=== PATIENT | female | born 1965 | race Two or more races ===

== ENCOUNTER → 2016-05-30 | Day surgery (SDC) | payer BC ==
[~2016-05-30] VITALS: Ht 175.3 cm; Wt 67.6 kg
[2016-05-30] VITALS (7 sets, daily range): BP systolic 140–148; BP diastolic 84–92
[~2016-05-30] MED LIST: ALOGLIPTIN-MET1 EAC1 PO; DIOVAN320 MG ORAL; Propofol 10mg/ml 20ml IV ONE; [UNRECOGNIZED DRUG - OTHER] PO
--- NOTE | 2016-05-30 08:53 | Short Stay Surgery H&P ---
History of Present Illness History of Present Illness Chief Complaint Rectal bleeding diarrhea, abdominal pains. JAQUELINE Bird is a 50 year old female who was admitted on for Rectal Bleeding Patient History Allergies: Coded Allergies: No Known Allergies (Unverified , 05/30/16) PAST MEDICAL HISTORY: (1) Hyperlipidemia (2) Diabetes (3) Hypertension Past Surgeries: Social History: Medication History Scheduled Alogliptin Roge/Metformin HCl (Alogliptin-Metformin 12.5-1000), 1 EACH PO BID, ( Reported) Valsartan (Diovan), 320 MG ORAL DAILY, (Reported) [Roussastatin], 10 MG PO DAILY, (Reported) Review of Systems Cardiovascular: Reports: no symptoms Respiratory: Reports: no symptoms Skeletal: Reports: no symptoms Gastrointestinal: Reports: other Genitourinary: Reports: no symptoms Neurologic: Reports: no symptoms Endocrine: Reports: diabetes - type 2 Hematologic: Reports: no symptoms Physical Exam Skin: normal HENT: normal Heart: normal Lungs: normal Abdomen: normal Extremities: normal Genitourinary: normal Plan Plan of Care Upper and lower GI endoscopies. Preop Interventions None. Summary of Findings See the reports. Final Diagnosis: Attestation Are the patient's medical conditions optimized for surgery? Attestation Response: yes JUSTYN CARRILLO May 30, 2016 08:53
--- NOTE | 2016-05-30 08:55 | Immediate Post-Op Evaluation ---
Immediate Post-Op Evalulation Immediate Post-Op Evalulation Procedure: egd colonocopy Date of Evaluation: May 30, 2016 Nausea: No Vomiting: No Hydration Status: adequate Mary Cisse MD May 30, 2016 08:55
--- NOTE | 2016-05-30 08:55 | Anethesia Preoperative Eval ---
Anesthesia Pre-op PMH/ROS General Date of Evaluation: May 30, 2016 ASA Score: ASA 1 Mallampati Score Class I : Soft palate, uvula, fauces, pillars visible Class II: Soft palate, uvula, fauces visible Class III: Soft palate, base of uvula visible Class IV: Only hard plate visible Mallampati Classification: Class I Allergies: Coded Allergies: No Known Allergies (Unverified , 05/30/16) Mary Cisse MD May 30, 2016 08:55
--- NOTE | 2016-05-30 08:55 | Pre-Procedure Note/Attestation ---
Pre-Procedure Note/Attestation Complete Prior to Procedure Planned Procedure: left Procedure Narrative: Endoscopic exam of the upper and lower GI tract. Indications for Procedure Pre-Operative Diagnosis: R/O diarrhea secondary to colitis, celiac, gastritis hemorrhoids tumors. Attestation I attest that I discussed the nature of the procedure; its benefits; risks and complications; and alternatives (and the risks and benefits of such alternatives ), prior to the procedure, with the patient (or the patient's legal digital media representative). I attest that, if there was a reasonable possibility of needing a blood transfusion, the patient (or the patient's legal digital media representative) was given the [place] [employer] [facility] standardized written summary, pursuant to the [place] Blood Safety Act ([place] Health and Safety Code # 1645, as amended). I attest that I re-evaluated the patient just prior to the surgery and that there has been no change in the patient's H&P, except as documented below: JUSTYN CARRILLO May 30, 2016 08:55
--- NOTE | 2016-05-30 08:56 | 48 Hour Post Anesthesia Eval ---
Post Anesthesia Evaluation Procedure: egd colonocopy Nausea: No Vomiting: No Hydration Status: adequate Mary Cisse MD May 30, 2016 08:56
--- NOTE | 2016-05-30 09:50 | Endoscopy Procedure Note ---
Endoscopy Procedure Note Indication for Procedure: Abdominal pain and diarrhea with rectal bleeding Procedures Performed: EGD - Normal upper GI endoscopy and biopsies obtained from duodenum and gastric body., colonoscopy - Minimal internal hemorrhoids. Occasional diverticuli noted. Two diminutive polyps found in proximal ascending colon and ICV that both were removed by cold snare, however the ICV polyp could not be retrived. Terminal ilium also examined and biospied as looked normal. No evidence of colitis noted. Specimen: yes Pt Tolerated Procedure Well: Yes Estimated Blood Loss: none Anesthesiologist: Dr. Odonnell. Anesthesia: moderate sedation Medication Given: see anesthesia record Implant(s) used?: No 50 yrs or older w/o bx or poly: Yes 10yrs. F/U not recommended: Yes If not recommended, why?: Med reason:<3 yrs.: System Reason:<3 yrs.: Last colonoscopy >= to 3yrs: Yes JUSTYN CARRILLO May 30, 2016 09:50
--- NOTE | 2016-05-30 09:51 | Discharge Instructions ---
Discharge Instructions Discharge Instructions Follow up with: See the docotor in office after 2 weeks. For Congestive Heart Failure Reminder Report to your physician any weight gain of 5 pounds or more in one week. JUSTYN CARRILLO May 30, 2016 09:51
--- NOTE | 2016-05-30 17:38 | Operative Note - Dictated ---
DATE OF OPERATION: 05/30/2016 PROCEDURE: Esophagogastroduodenoscopy with biopsy. PREOPERATIVE DIAGNOSIS: Diarrhea and abdominal pain. POSTOPERATIVE DIAGNOSIS: Normal upper gastrointestinal endoscopy and biopsy was taken from the first and second portion of duodenum and gastric area. MEDICATION USED: Per Dr. Odonnell, anesthesiologist. INSTRUMENT: GIF Olympus upper gastrointestinal video endoscope. DESCRIPTION OF PROCEDURE: The patient after arriving in the endoscopy unit, was told about risks and benefits of the procedure, which she accepted and signed the informed consent. The patient has been complaining of chronic diarrhea and as such, to rule out the possibility of celiac disease, this procedure was done. Upon entering into the stomach, gradually the scope was advanced towards gastroesophageal junction, which revealed basically normal findings. GE junction also looked normal without any evidence of hiatal hernia or Swanson's mucosa. The scope at this time was advanced into the gastric cavity and the areas of the fundus and the body and the antrum were examined in central supply technician fashion, which revealed basically normal findings without any particular pathology such as ulcers, tumors, etc. At this point, the scope was passed through normal looking pylorus. First and second portion of duodenum were examined and they looked normal and duodenal fold and haustra all looked normal. Clinically and endoscopically, there was no evidence of the celiac disease, however, biopsies were obtained from first and second portion of duodenum including bowel. At this time, the scope was pulled back into the stomach. A retroflexion maneuver was applied. The area of the gastroesophageal junction was examined in a closer fashion, which did not reveal any abnormality. Finally, the scope was pulled out and the procedure was terminated. The patient tolerated the procedure well. Said Emily Hunter DR: LILLY JOB#: [id number] CC:
--- NOTE | 2016-05-30 17:48 | Operative Note - Dictated ---
DATE OF OPERATION: 05/30/2016 PROCEDURE: 1. Total colonoscopy with polypectomy. 2. Ileoscopy with biopsy. PREOPERATIVE DIAGNOSES: 1. History of chronic diarrhea, rule out Crohn disease versus ulcerative colitis. 2. Rectal bleeding of uncertain etiology. POSTOPERATIVE DIAGNOSES: 1. Minimal internal hemorrhoid. 2. Occasional diverticuli noted in the colon. 3. Two small hyperplastic polypoid lesion noted over the proximal ascending colon and ileocecal valve and they were removed with cold snare, however, the ileocecal valve polyps could not be retrieved. 4. Normal looking terminal ileum and multiple biopsies were obtained from there the area of the terminal ileum. 5. Multiple biopsies all around the large bowel was obtained. 6. Poor colonic preparation. MEDICATION USED: Per Dr. Odonnell, anesthesiologist. INSTRUMENT: GIF Olympus video colonoscope. DESCRIPTION OF PROCEDURE: The patient after arriving in the endoscopy unit, was told about risks and benefits of the procedure, which she accepted and signed the informed consent. She was then put on the left lateral decubitus position. After adequate IV sedation, the scope was gently passed through the anal area, which revealed evidence of minimal exuding internal hemorrhoids. A retroflexion maneuver, which was applied in the rectum did not reveal any other major pathology except signifying the same minimal internal hemorrhoids, which were not friable at this time. At this time, the scope was gradually advanced into rather redundant left colon, which revealed occasional diverticular lesions, but there was no any evidence of colitis, polyps, tumors or bleeding site etc. The scope was gradually advanced toward the splenic flexure from there into transverse colon, which basically looked normal. The colon cleanup however was substandard and multiple irrigation had to be given. Finally, the scope could reach towards the hepatic flexure and guided into the right colon all the way to the base of the cecum. Incidental findings were the presence of two hyperplastic/diminutive polypoid lesion size of 2 to 3 millimeter, which was quite soft and there was grabbed with cold snare and removed, however, the polyp which was located over the ileocecal valve could not be retrieved. Finally, the scope was gradually advanced into terminal ileum with maneuvers, which basically revealed normal terminal ileum mucosa and no evidence of ulceration, inflammatory, polyps or stricture etc to suggest Crohn's disease, however, multiple biopsies from this area was also obtained. Finally, upon withdrawal of the scope from the colon in the different areas of the colon multiple biopsies were obtained including ascending, transverse, descending, ileocecal valve, and perirectal area and rectal area. Finally, the patient tolerated the procedure well and left the endoscopy room in good condition. Said Emily Hunter DR: LILLY JOB#: [id number] CC:
== END | disposition home or self-care (01) ==
LOC: GAS 07:23
DX: K62.5 Hemorrhage of anus and rectum (principal); R19.7 Diarrhea, unspecified; D12.2 Benign neoplasm of ascending colon; D12.0 Benign neoplasm of cecum; K64.8 Other hemorrhoids; K57.30 Diverticulosis of large intestine without perforation or abscess without bleeding; K29.50 Unspecified chronic gastritis without bleeding; E78.5 Hyperlipidemia, unspecified; E11.9 Type 2 diabetes mellitus without complications; Z79.84 Long term (current) use of oral hypoglycemic drugs; I10 Essential (primary) hypertension; Z79.899 Other long term (current) drug therapy
CPT/HCPCS: 45380; 45385; 82962; J2704; 94003; 94150